=== PATIENT | male | born 1985 | race Caucasian/White ===

== ENCOUNTER 2020-05-06 21:24 | Inpatient (IN) | payer MEDICAID ==
[~2020-05-06] VITALS: Ht 175.3 cm; Wt 75.8 kg
[2020-05-06] MEDS ORDERED: INSU100C SQ-INSULIN (21:42)
[2020-05-06] MEDS ORDERED: INSU100V8 SQ (21:42)
--- NOTE | 2020-05-06 21:47 | NUR ---
Pt arrives to ed from [facility] for occluded right politeal artery. Pt noted his foot was hurting, went to his pcp who sent him to the ed and there it was discovered. Pt is on a heparin drip that was transfered to out pumps. Pt is Recieving 800 units per hour. Pt reports that he is hungry. Pts blood glucose was 86 for ems. Pt denies trauma to foot and reports he feels okay. Also reports ability to ambulate. Pt connected to monitors and call light in reach. vss
--- NOTE | 2020-05-06 21:56 | NUR ---
MD Barone asked for heparin order to match what was continued on transfer of care since pt has occulusion.
--- NOTE | 2020-05-06 22:22 | NUR ---
PT TO CTA
[2020-05-06] MEDS ORDERED: OMNIPAQUE 350 MG/ML, 100ML BOTTLE ONE (22:35)
[2020-05-06] MEDS ORDERED: D5%-0.45NACL+KCL 20MEQ 1,000 ML IV SCH (23:30)
--- NOTE | 2020-05-06 23:52 | NUR ---
Bedsider report to Marcelina RN, RN informed important that iv fluids be started they were requested from pharmacy.
--- NOTE | 2020-05-06 23:57 | NUR ---
RN informed that heparin is running from verbal order to continue elko heparin order.
--- NOTE | 2020-05-06 23:58 | NUR ---
Report received from MELINDA Sr. This RN to assume care. Aware of the need for Heparin order after continuation from previous facility.
[2020-05-07] MEDS: D5%-0.45% NACL 1,000 ML IV SCH ×3 (00:50→16:50)
[2020-05-07] MEDS ORDERED: LIDODERM 5% PATCH TD PRN (01:00)
[2020-05-07] MEDS ORDERED: PLEASE ENTER ALLERGIES MC SCH (01:00)
[2020-05-07] MEDS ORDERED: ONDANSETRON 2MG/ML, 2ML IVPush PRN ×2 (01:00→18:00)
[2020-05-07] MEDS ORDERED: DOCUSATE 100 MG CAPSULE PO PRN (01:00)
[2020-05-07] MEDS ORDERED: hydrALAzine 20 MG/ML, 1ML IVPush PRN (01:00)
[2020-05-07] MEDS ORDERED: MELATONIN 5 MG TABLET PO PRN (01:00)
[2020-05-07] MEDS ORDERED: ACETAMINOPHEN 325 MG TABLET PO PRN (01:00)
[2020-05-07] MEDS: HEPARIN 25,000 UNITS/250ML PMX 250 ML IV PRN ×4 (01:09→15:17)
[2020-05-07] MEDS ORDERED: HEPARIN 5,000 UNITS/ML, 1ML IV ONE (01:30)
[2020-05-07 01:39] VITALS: BP 128/79
[2020-05-07 06:06] LABS: BASOPHILS # (AUTO) 0.07 x10^3/uL (0-0.1); BASOPHILS % (AUTO) 1 % (0-1); EOSINOPHILS % (AUTO) 4 % (1-7); LYMPHOCYTES % (AUTO) 31 % (22-44); MD NO; MEAN CORPUSCULAR HGB CONC 33.2 g/dL (33.2-36.2); MEAN CORPUSCULAR VOLUME 93.4 fL (81-97); MEAN PLATELET VOLUME 8.8 fL (7.4-10.4); MONOCYTES # (AUTO) 0.69 x10^3/uL (0.2-0.8); MONOCYTES % (AUTO) 8 % (2-9); NEUTROPHILS % (AUTO) 56 % (42-75); PLATELET COUNT 386 x10^3/uL (130-400); RED BLOOD COUNT 4.54 x10^6/uL (4.38-5.82); RED CELL DISTRIBUTION WIDTH 13.3 % (9.4-14.8)
[2020-05-07 06:15] LABS: ANION GAP 6 mmol/L (5-15); CALCIUM 8.7 mg/dL (8.5-10.1); CHLORIDE 108 mmol/L (98-107); CREATININE 0.83 mg/dL (0.7-1.3)
[2020-05-07 07:32] VITALS: BP 122/74
[2020-05-07] MEDS: HEPARIN 5,000 UNITS/ML, 1ML IV PRN ×2 (08:36→15:16)
[2020-05-07] MEDS: HYDROcodone/APAP 5/325 TABLET PO PRN ×2 (08:41→22:09)
[2020-05-07] MEDS ORDERED: POTASSIUM CHLORIDE 40 MEQ in SODIUM CHLORIDE 0.9% 500 ML IV ONE (10:00)
[2020-05-07] MEDS: INSULIN LISPRO 100 UNITS/ML, PEN SQ-INSULIN SCH ×3 (11:09→22:04)
[2020-05-07 13:09] VITALS: BP 120/72
[2020-05-07] MEDS ORDERED: FENTANYL PF 100 MCG/2ML ONE ×4 (15:25→19:27)
[2020-05-07] MEDS ORDERED: MIDAZOLAM 1 MG/ML, 2ML ONE (15:25)
[2020-05-07] MEDS ORDERED: HEPARIN 1,000 UNITS/ML, 10ML ONE (15:33)
[2020-05-07] MEDS ORDERED: BUPIVACAINE/PF-EPI 0.5% 1:200K ONE (15:33)
[2020-05-07] MEDS ORDERED: PAPAVERINE 30 MG/ML, 2ML ONE (15:33)
[2020-05-07] MEDS ORDERED: BACITRACIN 50,000 UNIT ONE (15:33)
[2020-05-07] MEDS ORDERED: THROMBIN 20,000 UNIT VIAL TP ONE (15:33)
[2020-05-07] MEDS ORDERED: PROTAMINE SULFATE 10 MG/ML, 5ML ONE (15:33)
[2020-05-07] MEDS ORDERED: CHLORHEXIDINE 15 ML UDC MM ONE (16:00)
[2020-05-07] MEDS ORDERED: EPINEPHRINE 1 MG/ML, 1ML ONE (16:51)
[2020-05-07] MEDS ORDERED: ROCURONIUM 10MG/ML,5ML ONE (16:51)
[2020-05-07] MEDS ORDERED: CEFAZOLIN 1,000 MG ONE (16:51)
[2020-05-07] MEDS ORDERED: PROPOFOL 10 MG/ML, 20ML ONE (16:51)
[2020-05-07] MEDS ORDERED: DEXAMETHASONE 4 MG/ML, 1ML ONE (16:51)
[2020-05-07] MEDS ORDERED: PROMETHAZINE 25 MG/ML, 1ML IVPush PRN (18:00)
[2020-05-07] MEDS ORDERED: DIPHENHYDRAMINE 50 MG/ML, 1ML IVPush PRN (18:00)
[2020-05-07] MEDS ORDERED: LABETALOL 5MG/ML, 20ML IV PRN (18:00)
[2020-05-07] MEDS ORDERED: EPHEDRINE 50 MG/ML, 1ML IVPush PRN (18:00)
[2020-05-07] MEDS ORDERED: DIAZEPAM 5 MG/ML, 2ML IVPush PRN (18:00)
[2020-05-07] MEDS ORDERED: HYDROmorphone 1 MG/ML, 1ML INJ IVPush PRN (18:00)
[2020-05-07] MEDS ORDERED: FENTANYL PF 100 MCG/2ML IV PRN (18:00)
[2020-05-07] MEDS ORDERED: ALBUTEROL SULFATE 2.5 MG/3 ML NPPB PRN (18:00)
[2020-05-07] MEDS ORDERED: OXYcodone 5 MG/5 ML ORAL.SOL UDC PO PRN (18:00)
[2020-05-07] MEDS ORDERED: MIDAZOLAM 1 MG/ML, 2ML IV PRN (18:00)
[2020-05-07] MEDS ORDERED: hydrALAzine 20 MG/ML, 1ML IV PRN (18:00)
[2020-05-07] MEDS ORDERED: PROMETHAZINE 12.5 MG SUPP PR PRN (18:00)
[2020-05-07] MEDS ORDERED: MEPERIDINE/PF 25MG/0.5ML IVPush PRN (18:00)
[2020-05-07] MEDS ORDERED: OXYcodone 5 MG/5 ML ORAL.SOL UDC ONE (19:27)
[2020-05-07] MEDS ORDERED: INSULIN SINGLE DOSE, ER ONE (19:58)
[2020-05-07] MEDS ORDERED: INSULIN REGULAR 100 UNITS/ML, 3ML VIAL SQ-INSULIN ONE (20:30)
[2020-05-07 21:00] VITALS: BP 136/74
[2020-05-07] MEDS: ATORVASTATIN 40 MG TABLET PO SCH (21:07)
[2020-05-07] MEDS: SODIUM CHLORIDE 0.9% 1,000 ML IV SCH (23:11)
[2020-05-08] MEDS: D5%-0.45% NACL 1,000 ML IV SCH (00:50)
[2020-05-08 01:30] VITALS: BP 113/76
[2020-05-08] MEDS: HYDROcodone/APAP 5/325 TABLET PO PRN ×4 (04:46→20:41)
[2020-05-08] MEDS: ASPIRIN 81 MG TABLET EC PO SCH (05:33)
[2020-05-08 07:11] VITALS: BP 114/74
[2020-05-08 07:50] LABS: MEAN CORPUSCULAR HEMOGLOBIN 30.5 pg (27.5-34.5); MEAN CORPUSCULAR HGB CONC 32.3 g/dL (33.2-36.2); MEAN CORPUSCULAR VOLUME 94.2 fL (81-97); MEAN PLATELET VOLUME 8.1 fL (7.4-10.4); PLATELET COUNT 353 x10^3/uL (130-400); RED BLOOD COUNT 4.23 x10^6/uL (4.38-5.82); RED CELL DISTRIBUTION WIDTH 13.4 % (9.4-14.8)
[2020-05-08 07:53] LABS: ANION GAP 6 mmol/L (5-15); CALCIUM 8.2 mg/dL (8.5-10.1); CHLORIDE 106 mmol/L (98-107)
[2020-05-08 07:57] LABS: CHOL/HDL RATIO 2.7; CHOLESTEROL, TOTAL 111 mg/dL (140-239); CREATININE 0.86 mg/dL (0.7-1.3); HDL CHOL % 37 % (26-37); HDL CHOLESTEROL (DIRECT) 41 mg/dL (40-60); LDL CHOLESTEROL,CALCULATED 45 mg/dL (54-169); LDL/HDL RATIO 1.1 (0.5-3.0); TRIGLYCERIDES 124 mg/dL (50-200); VLDL CHOLESTEROL 25 mg/dL (0-25)
[2020-05-08 08:27] LABS: BASOPHILS # (AUTO) 0.04 x10^3/uL (0-0.1); BASOPHILS % (AUTO) 0 % (0-1); EOSINOPHILS # (AUTO) 0.11 x10^3/uL (0-0.4); EOSINOPHILS % (AUTO) 1 % (1-7); LYMPHOCYTES # (AUTO) 2.12 x10^3/uL (1-3.4); LYMPHOCYTES % (AUTO) 18 % (22-44); MD SCAN; MONOCYTES # (AUTO) 0.88 x10^3/uL (0.2-0.8); MONOCYTES % (AUTO) 7 % (2-9); NEUTROPHILS % (AUTO) 74 % (42-75)
[2020-05-08] MEDS: INSULIN LISPRO 100 UNITS/ML, PEN SQ-INSULIN SCH ×4 (08:38→20:42)
[2020-05-08] MEDS: HEPARIN 5,000 UNITS/ML, 1ML IV PRN ×3 (08:39→22:57)
[2020-05-08] MEDS: SODIUM CHLORIDE 0.9% 1,000 ML IV SCH (11:57)
[2020-05-08] MEDS: HEPARIN 25,000 UNITS/250ML PMX 250 ML IV PRN (11:57)
[2020-05-08 14:52] VITALS: BP 133/82
[2020-05-08 19:34] VITALS: BP 128/75
[2020-05-08] MEDS: ATORVASTATIN 40 MG TABLET PO SCH (20:31)
[2020-05-09] MEDS: SODIUM CHLORIDE 0.9% 1,000 ML IV SCH (00:38)
[2020-05-09 01:04] VITALS: BP 151/88
[2020-05-09] MEDS: HYDROcodone/APAP 5/325 TABLET PO PRN ×3 (05:56→19:33)
[2020-05-09] MEDS: ASPIRIN 81 MG TABLET EC PO SCH (05:56)
[2020-05-09 08:08] VITALS: BP 149/89
[2020-05-09] MEDS: INSULIN LISPRO 100 UNITS/ML, PEN SQ-INSULIN SCH ×5 (08:09→21:41)
[2020-05-09] MEDS: HEPARIN 25,000 UNITS/250ML PMX 250 ML IV PRN (08:26)
[2020-05-09] MEDS ORDERED: INSULIN LISPRO 100 UNITS/ML, PEN SQ-INSULIN ONE (09:30)
[2020-05-09] MEDS ORDERED: OMNIPAQUE 350 MG/ML, 100ML BOTTLE ONE (11:08)
[2020-05-09] MEDS: HEPARIN 5,000 UNITS/ML, 1ML IV PRN (12:28)
[2020-05-09 13:35] VITALS: BP 152/77
[2020-05-09] MEDS ORDERED: GLUCAGON 1 MG IM PRN (14:00)
[2020-05-09] MEDS ORDERED: DEXTROSE 50%, 50ML SYRINGE IVPush PRN (14:00)
[2020-05-09] MEDS ORDERED: DEXTROSE 4 GM TAB.CHEW PO PRN (14:00)
[2020-05-09 20:13] VITALS: BP 131/82
[2020-05-09] MEDS ORDERED: INSULIN GLARGINE 100 UNITS/ML, PEN SQ-INSULIN SCH (21:00)
[2020-05-09] MEDS: SODIUM CHLORIDE FLUSH 10ML SYR IVF SCH (21:40)
[2020-05-09] MEDS: ATORVASTATIN 40 MG TABLET PO SCH (21:40)
[2020-05-10] MEDS: HYDROcodone/APAP 5/325 TABLET PO PRN ×3 (00:45→14:12)
[2020-05-10 01:07] VITALS: BP 146/86
[2020-05-10] MEDS: HEPARIN 5,000 UNITS/ML, 1ML IV PRN (02:07)
[2020-05-10] MEDS: HEPARIN 25,000 UNITS/250ML PMX 250 ML IV PRN (02:21)
[2020-05-10] MEDS: ASPIRIN 81 MG TABLET EC PO SCH (05:53)
[2020-05-10 07:19] VITALS: BP 119/81
[2020-05-10] MEDS: INSULIN LISPRO 100 UNITS/ML, PEN SQ-INSULIN SCH ×6 (08:00→16:38)
[2020-05-10] MEDS: SODIUM CHLORIDE FLUSH 10ML SYR IVF SCH (08:00)
[2020-05-10 14:46] VITALS: BP 113/75
[2020-05-10] MEDS ORDERED: RIVA20TA PO (14:50)
[2020-05-10] MEDS ORDERED: RIVAROXABAN 20 MG TABLET PO SCH (16:00)
== END 2020-05-10 18:41 | disposition home or self-care (01) | DRG 181 ==
LOC: ED 22:46 → EDIP 23:07 → 3N 05-07 01:37
PROVIDERS: ADMIT Internal Medicine; ATTEND Family Medicine
PROC: 04CR0ZZ Extirpation of Matter from Right Posterior Tibial Artery, Open Approach (ICD-10-PCS; 2020-05-07)
PROC: 03HY32Z Insertion of Monitoring Device into Upper Artery, Percutaneous Approach (ICD-10-PCS; 2020-05-07)
PROC: 04CM0ZZ Extirpation of Matter from Right Popliteal Artery, Open Approach (ICD-10-PCS; principal; 2020-05-07 16:30)
PROC: 04CP0ZZ Extirpation of Matter from Right Anterior Tibial Artery, Open Approach (ICD-10-PCS; 2020-05-07 16:30)
DX: I82.431 Acute embolism and thrombosis of right popliteal vein (principal); I70.201 Unspecified atherosclerosis of native arteries of extremities, right leg; F17.219 Nicotine dependence, cigarettes, with unspecified nicotine-induced disorders; E10.9 Type 1 diabetes mellitus without complications; Z83.3 Family history of diabetes mellitus; F15.10 Other stimulant abuse, uncomplicated; Z20.828 Contact with and (suspected) exposure to other viral communicable diseases; E10.51 Type 1 diabetes mellitus with diabetic peripheral angiopathy without gangrene; E10.65 Type 1 diabetes mellitus with hyperglycemia; F17.210 Nicotine dependence, cigarettes, uncomplicated
CPT/HCPCS: 36415; 71275; 74174; 80048; 80061; 82947; 82962; 83036; 85025; 85520; 87635; 93306; 99285; G0378; J0171; J0690; J1100; J1644; J2250; J2704; J2720; J3010; J3480; Q9967; J1815; J2440; J7030; J7040